=== PATIENT | male | born 1970 | race Caucasian/White ===

== ENCOUNTER 2025-01-15 14:59 | Outpatient (AMB) | payer OTHER, SELFPAY ==
--- NOTE | 2025-01-15 15:02 | A.PHYSOV_ITS ---
Vital Signs 01/15/25 15:03 Height 5 ft 8 in Weight 195 lb BMI 29.6 Intake Visit Reasons: MRI followup Intake Note: Patient is a 54 year old male here for MRI review. 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 The patient describes the sensation as an annoying numbness and itchiness rather than pain. Symptoms are exacerbated by standing or walking for long periods. A review of a recent MRI of the spine revealed mild degenerative disc disease and mild to moderate arthritis in the low back, with no obvious nerve impingement. The patient has not previously undergone physical therapy for this issue. The patient reports a past history of being an avid biker. Patient has failed conservative treatment therefore ordered MRI of his lumbar spine and we are reviewing it in person today. Pain Description - Location: The patient reports symptoms in the left thigh. - Quality: The patient describes the sensation as an annoying numbness and itchiness, not pain. - Exacerbating factors: Symptoms worsen with prolonged standing and walking. - Interference with function: The patient's ability to stand or walk for long periods is limited by the numbness. [facility] Surgical History H/O hernia repair History of cholecystectomy Social History (Updated 01/15/25 @ 15:05 by Marii Fernandez MA) Alcohol intake: current Alcohol intake frequency: holidays/special occasions only Patient Tobacco Use Status: Never used Tobacco Use of substances other than those prescribed or required for medical reasons: No Review of Systems Narrative Review of Systems - Neurological: Reports numbness and itchiness in the left thigh, worsened by prolonged standing or walking. Physical Exam Exam Exam: Physical Exam Lumbar Spine: Examination of his lumbar spine, there is no visible swelling or deformity. He is mildly tender to lower lumbar facets. He is otherwise nontender. Full range of motion of his lumbar spine. He does have an increase in pain with facet loading. Special Tests: Lhermittes sign was negative Heel Toe walk is normal Left straight leg raise: Negative Right straight leg raise: Negative Special tests Guido test is negative Ganslen's test is negative SI Joint compression test negative Corby test negative Piriformis stretch is negative Lower Extremities: Full range of motion bilateral lower extremities. No calf pain or edema. Neuro: Sensation: Intact to lower extremities bilaterally Strength L2 (Psoas): 5/5 on the left and 5/5 on the right. L3 (Quads): 5/5 on the left and 5/5 on the right. L4 (Ant tibialis): 5/5 on the left and 5/5 on the right. L5 (EHL) 5/5 on the left and 5/5 on the right. S1 (Gastroc): 5/5 on the left and 5/5 on the right. DTR L4: (Patellar) Left 2 Right 2 S1: (Achilles) Left 2 Right 2 Babinski Downgoing No pathologic clonus. No involuntary movement. Vital Signs: BMI result Body Mass Index 29.6 Assessment & Plan Assessment & Plan (1) Lumbar radiculopathy: Code(s): M54.16 - Radiculopathy, lumbar region Category: Medical (2) Lumbar spondylosis: Code(s): M47.816 - Spondylosis without myelopathy or radiculopathy, lumbar region Category: Medical Plan Pain Management - Affect: The patient describes the symptoms as annoying and reports they affect the quality of life. - Analgesia: The patient is not currently using any pain medications. - Activities of Daily Living: The patient is unable to stand or walk for long periods of time due to numbness. Plan Patient was informed and verbally consented to the use of an ambient scribe for clinic note documentation during this visit. 1. Lumbar Radiculopathy The patient's left thigh numbness is likely secondary to lumbar spine degenerative changes causing nerve irritation, as symptoms are suggestive despite an MRI showing no obvious nerve impingement. A conservative approach will be initiated, starting with a 4-6 week course of physical therapy. The patient was also advised on at-home core exercises and the benefits of low- impact exercise such as biking. If symptoms do not improve with physical therapy, a left L4 injection may be considered as the next step, though the patient expressed a preference to avoid injections. Follow-up is recommended after completion of the physical therapy course to re-evaluate symptoms. Orders: Orders PT Evaluation and Treatment Today M47.816 - Spondylosis without myelopathy or radiculopathy, lumbar region, M54.16 - Radiculopathy, lumbar region Coding Level of Care Code Tele Est Pt Level 3 (46609) Diagnoses Lumbar radiculopathy M54.16 Lumbar spondylosis M47.816
[2025-01-15 15:03] VITALS: BMI 29.6
--- OUTSIDE RECORDS SUMMARY | 2025-01-15 17:36 | XMS_ITS | Encounter Summary ---
Author Organization [facility] Address [address] [place] [address] Care Team Providers Care Print Shop Assistant Name Role Phone Johnny Aly MD Primary Care Provider [phone] Encounter Details Date Type Department Care Team (Late Contact Info) Description 01/09/2025 Results [facility] [address] [facility] [place] [phone] Hiwot William [place] Social History Tobacco Use Types Packs/Day Years Used Date Smoking Tobacco: Former Cigarettes 0 Q uit: 02/20/2006 Smokeless Tobacco: Never Alcohol Use Standard Drinks/Week Comments Yes 0 (1 standard drink = 0.6 oz pur e alcohol) Interpersonal Safety Answer Date Record ed Physical Abuse Unrecognized value 10/15/2024 Verbal Abuse Unrecognized value 10/15/2024 Sex and Gender Information Value Date Recorded Sex Assigned at Not on file Legal Sex Male 3:00 AM EST Gender Identity Not on file Sexual Orientation Not on file documented as of this encounter Plan of Treatment Upcoming Encounters Date Type Department Care Team (Late Contact Info) Description 03/10/2025 2:45 PM EST Office Visit Endocrinology - [place] [address] [place] [address] Cecile Moya PA [address], [place] 07/09/2025 3:30 PM EDT Office Visit Internal Medicine - [facility] [address] [place], [place] [phone] Johnny Aly MD [address] [place] [id number] documented as of this encounter Visit Diagnoses Not on filedocumented in this encounter Additional Health Concerns Assessment Noted Time PHQ-9 Depression Total Score: 0 01/10/20 10:48 AM EST documented as of this encounter Care Teams Print Shop Assistant Relationship Specialty Start Date End Date Johnny Aly MD [address] [place] [id number] PCP - General Internal Medicine 05/09/24 documented as of this encounter
--- OUTSIDE RECORDS SUMMARY | 2025-01-15 17:36 | XMS_ITS | Clinical Summary ---
Author Organization [place] [address] [facility] Building Address [address] [place], [place] [address], [place] Phone Care Team Providers Care Warehouse Representative Name Role Phone Johnny Aly MD Primary Care Provider [phone] Allergies No known active allergies Medications atorvastatin (LIPITOR) 10 mg tablet TAKE 1 TABLET BY MOUTH 1 TIME EACH DAY. 90 tablet 1 10/02/19 25 Active levothyroxine (SYNTHROID, LEVOTHROID) 50 mcg tablet TAKE 1 TABLET BY MOUTH EVERY DAY 90 tablet 1 10/02/19 25 Active dulaglutide (Trulicity) 0.75 mg/0.5 mL pen injector injection INJECT 0.5 MLS ONCE WEEKLY 2 mL 3 10/15/19 25 Active glipiZIDE (GLUCOTROL) 5 mg tablet TAKE 1 TABLET BY MOUTH 2 TIMES A DAY BEFORE MEALS. 180 tablet 1 10/15/19 25 Active omeprazole (PriLOSEC) [address] capsule TAKE 1 CAPSULE (40 MG TOTAL) BY MOUTH EVERY DAY BEFORE BREAKFAST . DO NOT CRUSH OR CHEW 90 capsule 3 10/24/19 25 Active metFORMIN (GLUCOPHAGE) 1,000 mg tablet TAKE 1 TABLET BY MOUTH TWICE A DAY WITH MEALS 180 tablet 1 01/16/20 25 Active lisinopriL (PRINIVIL,ZESTRI L) 2.5 mg tablet Take 1 tablet (2.5 mg total) by mouth 1 (one) time each day. 90 tablet 04/04/19 25 025 Discontinued(T herapy completed) omeprazole (PriLOSEC) [address] capsuleIndicatio ns:Type 2 diabetes mellitus without complications (CMS/HCC V24, CMS/HCC V28) TAKE 1 CAPSULE BY MOUTH EVERY DAY 90 capsule 1 08/15/19 025 Discontinued(F ormulary change) metFORMIN (GLUCOPHAGE) 1,000 mg tablet TAKE 1 TABLET BY MOUTH TWICE A DAY WITH MEALS 180 tablet 10/15/19 025 Discontinued Active Problems Problem Noted Date Diagnosed Date Class 1 obesity with serious comorbidity and body mass index (BMI) of 30.0 to 30.9 in adult 06/25/2024 Hypothyroidism 08/15/2023 Nephrolithiasis 09/03/2020 Schatzki's ring 10/30/2017 Type 2 diabetes mellitus ([facility] V24, [facility] V 28) 09/27/2016 Eosinophilic esophagitis 05/26/2015 Overview (02/16/2024): EGD plus biopsies 05/25/2015; also 09/29/2015 at [facility]. Reflux esophagitis 07/30/2010 BPH (benign prostatic hyperplasia) 12/23/2009 Seasonal allergies 12/23/2009 Left hip pain 11/11/2008 Inguinal hernia 02/16/2006 Mixed hyperlipidemia 02/16/2006 Encounters Date Type Department Care Team Description 01/09/2025 11:15 AM EST Lab Draw Station - [address] Type 2 diabetes mellitus with other specified complication, with long-term current use of insulin ([facility] V24, [facility] V28) (Primary Dx); Type 2 diabetes mellitus with other specified complication, without long-term current use of insulin ([facility] V24, [facility] V28) 01/09/2025 11:00 AM EST Office Visit Internal Medicine - [address] [phone] Johnny Aly MD Type 2 diabetes mellitus with other specified complication, with long-term current use of insulin ([facility] V24, [facility] V28) (Primary Dx); Mixed hyperlipidemia; Class 1 obesity due to excess calories with serious comorbidity and body mass index (BMI) of 30.0 to 30.9 in adult 01/09/2025 Results Follow-Up Internal Medicine - [address] [phone] [place] 12/24/2024 5:15 PM EST - 12/24/2024 11:59 PM EST Hospital Encounter Radiology Department - [address] [phone] Radiculopathy, lumbar region; Spondylosis, unspecified Discharge Disposition: Home or Self Care 12/16/2024 11:30 AM EDT Office Visit Walk-In Clinic - [address] [phone] Jann Humphrey PA Acute viral pharyngitis (Primary Dx) 10/15/2024 7:32 AM EDT Anesthesia Event [facility] [address] [place] [phone] Abrahan Hilton MD Johnson, Lorraine, CRNA 10/15/2024 6:35 AM EDT - 10/15/2024 11:59 PM EDT Hospital Encounter [facility] [address] [place] [phone] Bigg Byrd DO Johnson, Lorraine, CRNA Esophageal dysphagia; Schatzki ring of distal esophagus; Gastroesophageal reflux disease without esophagitis Discharge Disposition: Home or Self Care from Last 3 Months Immunizations Immunization Administration Dates Next Due Td Tetanus diptheria (Tdvax) 7yo and older 08/24 Tdap Tetanus diptheria acell ular pertussis (Boostrix; Adacel) 7yo and older 01/31/2020 Surgical History Surgery Date Site/Laterality Comments OTHER SURGICAL HISTORY PROCEDURE: AR UNLISTED PROCEDURE ANUS; COMMENT: anal fistula CHOLECYSTECTOMY 2006 PROCEDURE: HISTORICAL CHOLECYSTECTOMY; COMMENT: date approximate. HERNIA REPAIR PROCEDURE: HISTORICAL HERNIA REPAIR/ING OTHER SURGICAL HISTORY 07/25/2013 PROCEDURE: AR DILATION ESOPH UNGUIDED SOUND/BOUGIE 1/MULT PASS; COMMENT: 46 Fr Evelio UPPER GASTROINTESTINAL ENDOSCOPY 05/25/2015 PROCEDURE: AR UPPER GI ENDOSCOPY PERFORMED; COMMENT: Erosive esophagitis at the EGJ, biopsies of the midesophagus: Eosinophilic esophagitis UPPER GASTROINTESTINAL ENDOSCOPY 07/25/2013 PROCEDURE: AR UPPER GI ENDOSCOPY PERFORMED; COMMENT: LA grade A esophagitis and minor schatzki ring ESOPHAGOGASTRODUODENOSCOPY 09/29/2015 PROCEDURE: AR EGD TRANSORAL BIOPSY SINGLE/MULTIPLE; COMMENT: [facility] - esophagitis, gastritis, duodenitis. Pathology suggestive of possible celiac disease and EOE. No evidence of H. pylori or Barretts esophagus. OTHER SURGICAL HISTORY 12/13/2017 PROCEDURE: RADIOLOGIC EXAM ESOPHAGUS SINGLE CONTRAST STUDY; COMMENT: Mild esophageal dysmotility. No ulcer, stricture or filling defect. Reflux noted. COLONOSCOPY 08/13/2018 PROCEDURE: HISTORICAL COLONOSCOPY; COMMENT: negative screening exam Medical History Medical History Date Comments Other and unspecified hyperlipidemia 02/16/2006 DX:Other and unspecified hyperlipidemia Type II or unspecified type diabetes mellitus without mention of complication, not stated as uncontrolled 07/27/2006 DX:Type II or unspecified ty pe diabetes mellitus without mention of complication, not stated as uncontrolled Reflux esophagitis 07/30/2010 DX:Reflux eso phagitis Schatzki's ring Family History Relation Name Status Comments Brother 1 Alive DM Brother 2 Alive Daughter 1 Alive Daughter 2 Alive Daughter 3 Alive Father Alive CAD Mother Alive DM,CAD Sister 1 Alive Sister 2 Alive Son Alive Social History Tobacco Use Types Packs/Day Years [...] on file Sexual Orientation Not on file Obstetrics History Last Filed Vital Signs Vital Sign Reading Time Taken Comments Blood Pressure 128/80 01/09/2025 10:47 AM EST Pulse 78 01/09/2025 10:47 AM EST Temperature 36.6 C (97.9 F) 12/16/2024 11:34 AM EDT Respiratory Rate 16 10/15/2024 8:11 AM EDT Oxygen Saturation 98% 12/16/2024 11:34 AM EDT Inhaled Oxygen Concentration - - Weight 90.7 kg (200 lb) 01/09/2025 10:47 AM EST Height 172.7 cm (5' 8 ) 01/09/2025 10:47 AM EST Body Mass Index 30.41 01/09/2025 10:47 AM EST Plan of Treatment Upcoming Encounters Date Type Department Care Team (Late st Contact Info) Description 03/10/2025 2:45 PM EST Office Visit Endocrinology - [place] [address] [place] [address] Cecile Moya PA [address] [place], [place] 07/09/2025 3:30 PM EDT Office Visit Internal Medicine - [address] [phone] Johnny Aly MD [address] [place] [phone] Health Maintenance Due Date Last Done Comments Diabetes: Annual Foot Exam 1978 Diabetes: Annual Retina Eye Exam 1978 Hepatitis B Vaccines (1 of 3 - 19+ 3-dose series) 05/04/1987 Pneumococcal Vaccine: 50+ Years (1 of 2 - PCV) 05/04/1987 Zoster Vaccines (1 of 2) 2018 HIV Screening 01/29/2022 Hepatitis C Screening 01/29/2022 Social Influencers of Health Screening 01/29/2022 COVID-19 Vaccine ( season) 2024 04/17/2020, 03/27/2020 Influenza Vaccine (#1) 2024 Diabetes: Blood Sugar Control Test (HGBA1C) 07/09/2025 01/09/2025, 06/25/2024, 02/19/2024, Additional history exists Diabetes: Annual Urine Albumin-Creatinine Ratio (uACR) 01/09/2026 01/09/2025, 02/23/2024 Diabetes: Annual GFR (Glomerular Filtration Rate) 01/09/2026 01/09/2025, 06/27/2024, 02/19/2024, Additional history exists Colorectal Cancer Screening: Colonoscopy 08/13/2028 08/13/2018 Cholesterol Screening (Lipid Panel) 01/09/2030 01/09/2025, 06/27/2024, 02/19/2024, Additional history exists DTaP,Tdap,and Td Vaccines (3 - Td or Tdap) 01/30/2030 01/31/2020, 08/25/2011 RSV Immunization Adult Patients (1 - 1-dose 75+ series) 05/04/2043 Depression Screening Completed 01/09/2025 HIB Vaccines Aged Out No longer eligi ble based on patient's age to complete this topic HPV Vaccines Aged Out No longer eligi ble based on patient's age to complete this topic Hepatitis A Vaccines Aged Out No long er eligible based on patient's age to complete this topic IPV Vaccines Aged Out No longer eligi ble based on patient's age to complete this topic MMR Vaccines Aged Out No longer eligi ble based on patient's age to complete this topic Meningococcal ACWY Vaccine Aged Out N o longer eligible based on patient's age to complete this topic Meningococcal B Vaccine Aged Out No l onger eligible based on patient's age to complete this topic RSV Immunization Patients Under 20 months Aged Out No longer eligible based on patient's age to complete this topic Varicella Vaccines Aged Out No longer eligible based on patient's age to complete this topic Procedures Procedure Name Priority Date/Time Associated Diagnosis Comments MICROALBUMIN CREATININE URINE RATIO Routine 01/09/2025 11:19 AM EST Type 2 diabetes mellitus with other specified complication, with long-term current use of insulin ([facility] V24, [facility] V28) COMPREHENSIVE METABOLIC PANEL Routine 01/09/2025 11:13 AM EST Type 2 diabetes mellitus with other specified complication, with long-term current use of insulin ([facility] V24, [facility] V28) HEMOGLOBIN A1C Routine 01/09/2025 11:13 AM EST Type 2 diabetes mellitus with other specified complication, with long-term current use of insulin ([facility] V24, [facility] V28) LIPID PANEL WITH REFLEX TO DIRECT LDL Routine 01/09/2025 11:13 AM EST Type 2 diabetes mellitus with other specified complication, with long-term current use of insulin ([facility] V24, [facility] V28) MR LUMBAR SPINE WO CONTRAST Routine 12/24/2024 5:53 PM EST Radiculopathy, lumbar region Spondylosis, unspecified POC RAPID STREP A Routine 12/16/2024 12: 02 PM EDT Acute viral pharyngitis POC RAPID [id number], MOLECULAR Routine 12/16/2024 11:53 AM EDT Acute viral pharyngitis EGD Routine 10/15/2024 7:50 AM EDT Esophageal dysphagia Schatzki ring of distal esophagus Gastroesophageal reflux disease without esophagitis TISSUE EXAM Routine 10/15/2024 7:45 AM EDT Esophageal dysphagia Schatzki ring of distal esophagus Gastroesophageal reflux disease without esophagitis HM COLONOSCOPY Routine 08/13/2018 from Last 3 Months or Most Recently Relevant to Health Maintenance Results * Microalbumin creatinine urine ratio (01/09/2025 11:19 AM EST) Creatinine, Urine 222.0 mg/dL 01/09/2025 2:56 PM EST [facility] Microalb, Ur 16.0 0.0 - 29.0 mg/L 01/09/2025 2:56 PM EST [facility] Microalb/Creat Ratio 7 <30 mg/g creat 01/09/2025 2:56 PM EST [facility] Urine Urine specimen obtained by clean catch procedure / Unknown Non-blood Collection / Unknown 01/09/2025 11:19 AM EST 01/09/2025 11:19 AM EST us Johnny Aly MD LAB URINE ORDERABLES Final Res ult [facility] [address] [place] [address], [place] [phone] * Lipid panel with reflex to direct LDL (01/09/2025 11:13 AM EST) Cholesterol 155 0 - 200 mg/dL 01/09/2025 2:53 PM [facility] Triglycerides 116 0 - 150 mg/dL 01/09/2025 2:53 PM [facility] HDL 45 >=40 mg/dL 01/09/2025 2:53 PM [facility] LDL Calculated 87 0 - 100 mg/dL 01/09/2025 2:53 PM [facility] Comment:Estimated LDL Calcul ated using equation: Total cholesterol - HDL cholesterol - (Triglycerides/5) VLDL Cholesterol [place] 23.2 mg/dL 01/09/2025 2:53 PM [facility] Non HDL Chol. (LDL+VLDL) 110 <145 mg/dL 01/09/2025 2:53 PM [facility] Chol/HDL Ratio 3.4 0.0 - 4.4 01/09/2025 2:53 PM [facility] Blood Venous blood specimen / Unknown Venipuncture / Unknown 01/09/2025 11:13 AM EST 01/09/2025 11:13 AM EST us Johnny Aly MD LAB BLOOD ORDERABLES Final Res ult [facility] [address] [place] [address], * (ABNORMAL) Hemoglobin A1c (01/09/2025 11:13 AM EST) Hemoglobin A1C 7.5(H) <6.5 % LAB CHEMISTRY METHOD 01/09/2025 9:19 PM [facility] Mean Bld Glu Estim. 169 mg/dL LAB CHEMISTRY METHOD 01/09/2025 9:19 PM [facility] Blood Venous blood specimen / Unknown Venipuncture / Unknown 01/09/2025 11:13 AM EST 01/09/2025 11:13 AM EST us Johnny Aly MD LAB BLOOD ORDERABLES Final Res ult [facility] [address] [place] [address], * (ABNORMAL) Comprehensive metabolic panel (01/09/2025 11:13 AM EST) Sodium 143 133 - 145 mmol/L 01/09/2025 2:53 PM [facility] Potassium 4.7 3.5 - 5.5 mmol/L 01/09/2025 2:53 PM [facility] Chloride 106 96 - 110 mmol/L 01/09/2025 2:53 PM [facility] CO2 27 21 - 32 mmol/L 01/09/2025 2:53 PM [facility] Anion Gap 10 3 - 11 01/09/2025 2:53 PM [facility] Glucose 119(H) 70 - 100 mg/dL 01/09/2025 2:53 PM [facility] BUN 11 5 - 25 mg/dL 01/09/2025 2:53 PM [facility] Creatinine 0.85 0.70 - 1.30 mg/dL 01/09/2025 2:53 PM [facility] eGFR 102 >=60 mL/min/1. 73m2 01/09/2025 2:53 PM [facility] Comment:Calculation based on the Chronic Kidney Disease Epidemiology Collaboration (CKD-EPI) equation refit without adjustment for race. BUN/Creatinine Ratio 12.9 01/09/2025 2:53 PM [facility] Calcium 9.2 8.5 - 10.5 mg/dL 01/09/2025 2:53 PM EST [facility] AST (SGOT) 14 10 - 42 unit/L 01/09/2025 2:53 PM [facility] ALT (SGPT) 18 10 - 60 unit/L 01/09/2025 2:53 PM [facility] Alkaline Phosphatase 66 42 - 121 unit/L 01/09/2025 2:53 PM [facility] Total Protein 7.0 6.0 - 8.0 g/dL 01/09/2025 2:53 PM [facility] Albumin 4.4 3.2 - 5.0 g/dL 01/09/2025 2:53 PM [facility] Total Bilirubin 0.6 0.0 - 1.4 mg/dL 01/09/2025 2:53 PM [facility] Blood Venous blood specimen / Unknown Venipuncture / Unknown 01/09/2025 11:13 AM EST 01/09/2025 11:13 AM EST us Johnny Aly MD LAB BLOOD ORDERABLES Final Res ult [facility] [address] [place] [address], * MR Lumbar Spine wo Contrast (12/24/2024 5:53 PM EST) Anatomical Region Laterality Modality L-spine, Spine Magnetic Resonan ce 12/25/2024 5:04 PM EST Impressions 12/26/2024 11:30 AM EST Impression: Multilevel degenerative changes as above. -------- FINAL REPORT -------- Dictated By: Margarita Galdamez Dictated Date: 12/25/2024 17:04 ET Assigned Physician: Margarita Galdamez Reviewed and Electronically Signed By: Margarita Galdamez Signed Date: 12/26/2024 11:30 ET Workstation ID: [id number] Transcribed By: Self Edit Transcribed Date: 12/26/2024 08:53 ET Narrative 12/26/2024 11:30 AM EST MRI LUMBAR SPINE Clinical Statement: low back pain Comparison: None Technique: Multiplanar, multisequence MRI images of the lumbar spine were obtained without intravenous contrast. Findings: There is normal lumbar lordosis. There is preservation of vertebral body height. Vertebral body marrow is within normal limits. Disc desiccation at multiple levels. Cord signal is normal. The conus medullaris is normal in signal characteristics and morphology and terminates at the L1 level. T12-L1: Mild broad-based disc bulge without neuroforaminal or spinal canal stenosis L1-L2: Broad-based disc bulge, facet arthropathy and hypertrophy, ligamentum flavum hypertrophy with mild bilateral neuroforaminal stenosis, no spinal canal stenosis L2-L3: Broad-based disc bulge, facet arthropathy, ligamentum flavum hypertrophy with moderate left and mild right neuroforaminal stenosis, mild spinal canal stenosis L3-L4: Broad-based disc bulge, facet arthropathy and hypertrophy, ligamentum flavum hypertrophy with mild bilateral neuroforaminal stenosis and mild spinal canal stenosis L4-L5: Broad-based disc bulge, facet arthropathy and hypertrophy, ligamentum flavum hypertrophy, mild bilateral neuroforaminal stenosis and mild spinal canal stenosis L5-S1: Mild broad-based disc bulge, facet arthropathy without neuroforaminal or spinal canal stenosis Procedure Note Margarita Galdamez MD - 12/26/2024 MRI LUMBAR SPINE Clinical Statement: low back pain Comparison: None Technique: Multiplanar, multisequence MRI images of the lumbar spine wereobtained without intravenous contrast. Findings: There is normal lumbar lordosis. There is preservation ofvertebral body height. Vertebral body marrow is within normal limits.Disc desiccation at multiple levels. Cord signal is normal. The conusmedullaris is normal in signal characteristics and morphology andterminates at the L1 level. T12-L1: Mild broad-based disc bulge without neuroforaminal or spinal canalstenosis L1-L2: Broad-based disc bulge, facet arthropathy and hypertrophy,ligamentum flavum hypertrophy with mild bilateral neuroforaminal stenosis,no spinal canal stenosis L2-L3: Broad-based disc bulge, facet arthropathy, ligamentum flavumhypertrophy with moderate left and mild right neuroforaminal stenosis,mild spinal canal stenosis L3-L4: Broad-based disc bulge, facet arthropathy and hypertrophy,ligamentum flavum hypertrophy with mild bilateral neuroforaminal stenosisand mild spinal canal stenosis L4-L5: Broad-based disc bulge, facet arthropathy and hypertrophy,ligamentum flavum hypertrophy, mild bilateral neuroforaminal stenosis andmild spinal canal stenosis L5-S1: Mild broad-based disc bulge, facet arthropathy withoutneuroforaminal or spinal canal stenosis IMPRESSION: Impression: Multilevel degenerative changes as above. -------- FINAL REPORT -------- Dictated By: Margarita Galdamez Dictated Date: 12/25/2024 17:04 ET Assigned Physician: Margarita Galdamez Reviewed and Electronically Signed By: Margarita Galdamez Signed Date: 12/26/2024 11:30 ET Workstation ID: [id number] Transcribed By: Self Edit Transcribed Date: 12/26/2024 08:53 ET Valentin LANGLEY [facility] MRI PROCEDURES Final Resul t * POC rapid strep A manually resulted (12/16/2024 12:02 PM EDT) Pathologist [facility] Rapid Strep A Screen POC Negative Negative Swab Structure of anterior region of neck / Unknown 12/16/2024 12:02 PM EDT Jann LANGLEY POINT OF CARE TEST ENTER/E DIT ORDERABLES Final Result * Poc Rapid [id number], MOLECULAR (12/16/2024 11:53 AM EDT) Pathologist [facility] COVID-19/SARS- COV-2 Rapid POC Negative Negative Swab Nasopharyngeal structure / Unknown 12/16/2024 11:53 AM EDT Jann LANGLEY POINT OF CARE TEST ENTER/E DIT ORDERABLES Final Result * EGD Anesthesia - MAC; [facility] ENDOSCOPY (10/15/2024 7:50 AM EDT) Anatomical Region Laterality Modality Endoscopy 10/15/2024 7:32 AM EDT Impressions 10/15/2024 7:51 AM EDT - Z-line irregular, 35 cm from the incisors. Biopsied. WATS-3D brush biopsy specimens obtained. - Normal stomach. - Normal examined duodenum. - Benign-appearing esophageal stenosis. Dilated. Recommendation: - Discharge patient to home. - Resume previous diet. - Continue present medications. - Await pathology results. Narrative 10/15/2024 7:51 AM EDT [facility] Patient Name: Loi Ocampo Procedure Date: 10/15/2024 7:32 AM Date of : 1970 Age: 54 Gender: Male Note Status: Finalized Attending MD: Bigg Byrd DO, [id number] Procedure Date No Time: 10/15/2024 Procedure: Upper GI endoscopy Indications: Functional Dyspepsia, Heartburn Providers: Bigg Byrd DO Referring MD: Johnny Aly MD Medicines: Monitored Anesthesia Care Complications: No immediate complications. Estimated blood loss: Minimal. Estimated Blood Loss: Estimated blood loss was minimal. Procedure: Pre-Anesthesia Assessment: - - Prior to the procedure, a History and Physical was performed, and patient medications and allergies were reviewed. The patient is competent. The risks and benefits of the procedure and the sedation options and risks were discussed with the patient. All questions were answered and informed consent was obtained. Patient identification and proposed procedure were verified by the physician, the nurse, the anesthesiologist, the stretcher helper and the signals collection technician in the pre-procedure area in the endoscopy suite. Mental Status Examination: alert and oriented. Airway Examination: normal oropharyngeal airway and neck mobility. Respiratory Examination: clear to auscultation. CV Examination: normal. Prophylactic Antibiotics: The patient does not require prophylactic antibiotics. Prior Anticoagulants: The patient has taken no anticoagulant or antiplatelet agents. ASA Grade Assessment: II - A patient with mild systemic disease. After reviewing the risks and benefits, the patient was deemed in satisfactory condition to undergo the procedure. The anesthesia plan was to use monitored anesthesia care (MAC). Immediately prior to administration of medications, the patient was re-assessed for adequacy to receive sedatives. The heart rate, respiratory rate, oxygen saturations, blood pressure, adequacy of pulmonary ventilation, and response to care were monitored throughout the procedure. The physical status of the patient was re-assessed after the procedure. After obtaining informed consent, the endoscope was passed under direct vision. Throughout the procedure, the patient's blood pressure, pulse, and oxygen saturations were monitored continuously. The Endoscope was introduced through the mouth, and advanced to the third part of duodenum. The upper GI endoscopy was accomplished without difficulty. The patient tolerated the procedure well. Findings: The Z-line was irregular and was found 35 cm from the incisors. Biopsies were taken with a cold forceps for histology. Wide Area Transepithelial Sampling (WATS-3D [place] Biopsy) was performed for histology and samples sent for Computer-Assisted 3-Dimensional analysis. Estimated blood loss was minimal. The stomach was normal. The examined duodenum was normal. One benign-appearing, intrinsic mild (non-circumferential scarring) stenosis was found 34 to 35 cm from the incisors. This stenosis measured 1.8 cm (inner diameter) x less than one cm (in length). The stenosis was traversed. A TTS dilator was passed through the scope. Dilation with an 18-19-20 mm balloon dilator was performed to 20 mm. The dilation site was examined following endoscope reinsertion and showed complete resolution of luminal narrowing. Estimated blood loss was minimal. Procedure Code(s): --- Professional --- 88866, Esophagogastroduodenoscopy, flexible, transoral; with transendoscopic balloon dilation of esophagus (less than 30 mm diameter) 99996, 59, Esophagogastroduodenoscopy, flexible, transoral; with biopsy, single or multiple Diagnosis Code(s): --- Professional --- K22.89, Other specified disease of esophagus K22.2, Esophageal obstruction K30, Functional dyspepsia R12, Heartburn CPT copyright 2020 [employer]. All rights reserved. The codes documented in this report are preliminary and upon fill manager review may be revised to meet current compliance requirements. BIGG Byrd DO 10/15/2024 7:50:34 AM This report has been signed electronically.Bigg Byrd DO Number of Addenda: 0 Note Initiated On: 10/15/2024 7:32 AM Scope In: Scope Out: Endoscopy Department at [facility] - [address] [place] [phone] Procedure Note Bigg Byrd DO - 10/15/2024 [facility] Patient Name: Loi Ocampo Procedure Date: 10/15/2024 7:32 AM Date of : 1970 Age: 54 Gender: Male Note Status: Finalized Attending MD: Bigg Byrd DO, [id number] Procedure Date No Time: 10/15/2024 Procedure: Upper GI endoscopy Indications: Functional Dyspepsia, Heartburn Providers: Bigg Byrd DO Referring MD: Johnny Aly MD Medicines: Monitored Anesthesia Care Complications: No immediate complications. Estimated blood loss: Minimal. Estimated Blood Loss: Estimated blood loss was minimal. Procedure: Pre-Anesthesia Assessment: - - Prior to the procedure, a History and Physicalwas performed, and patient medications and allergieswere reviewed. The patient is competent. The risks and benefits of the procedure and the sedation optionsand risks were discussed with the patient. Allquestions were answered and informed consent was obtained. Patient identification and proposed procedure were verified by the physician, the nurse, the anesthesiologist, the stretcher helper and thetechnician in the pre-procedure area in the endoscopy suite. Mental Status Examination: alert and oriented.Airway Examination: normal oropharyngeal airway and neck mobility. Respiratory Examination: clear to auscultation. CV Examination: normal. Prophylactic Antibiotics: The patient does not requireprophylactic antibiotics. Prior Anticoagulants: The patient has taken no anticoagulant or antiplatelet agents. ASA Grade Assessment: II - A patient with mild systemic disease. After reviewing the risks and benefits,the patient was deemed in satisfactory condition to undergo the procedure. The anesthesia plan was touse monitored anesthesia care (MAC). Immediately priorto administration of medications, the patient was re-assessed for adequacy to receive sedatives. The heart rate, respiratory rate, oxygen saturations, blood pressure, adequacy of pulmonary ventilation,and response to care were monitored throughout the procedure. The physical status of the patient was re-assessed after the procedure. After obtaining informed consent, the endoscope was passed under direct vision. Throughout theprocedure, the patient's blood pressure, pulse, and oxygen saturations were monitored continuously. TheEndoscope was introduced through the mouth, and advanced tothe third part of duodenum. The upper GI endoscopy was accomplished without difficulty. The patienttolerated the procedure well. Findings: The Z-line was irregular and was found 35 cm fromthe incisors. Biopsies were taken with a cold forcepsfor histology. Wide Area Transepithelial Sampling(WATS-3D [place] Biopsy) was performed for histology andsamples sent for Computer-Assisted 3-Dimensional analysis. Estimated blood loss was minimal. The stomach was normal. The examined duodenum was normal. One benign-appearing, intrinsic mild (non-circumferential scarring) stenosis was found34 to 35 cm from the incisors. This stenosis measured1.8 cm (inner diameter) x less than one cm (in length). The stenosis was traversed. A TTS dilator waspassed through the scope. Dilation with an 18-19-20 mm balloon dilator was performed to 20 mm. Thedilation site was examined following endoscope reinsertionand showed complete resolution of luminal narrowing. Estimated blood loss was minimal. Procedure Code(s): --- Professional --- 99441, Esophagogastroduodenoscopy, flexible, transoral; with transendoscopic balloon dilation of esophagus (less than 30 mm diameter) 97769, 59, Esophagogastroduodenoscopy, flexible, transoral; with biopsy, single or multiple Diagnosis Code(s): --- Professional --- K22.89, Other specified disease of esophagus K22.2, Esophageal obstruction K30, Functional dyspepsia R12, Heartburn CPT copyright 2020 [employer]. All rights reserved. The codes documented in this report are preliminary and upon fill manager reviewmay be revised to meet current compliance requirements. BIGG Byrd DO 10/15/2024 7:50:34 AM This report has been signed electronically.Bigg Byrd DO Number of Addenda: 0 Note Initiated On: 10/15/2024 7:32 AM Scope In: Scope Out: Endoscopy Department at [facility] - [address] [place] [id number] IMPRESSION: - Z-line irregular, 35 cm from the incisors. Biopsied. WATS-3D brush biopsy specimens obtained. - Normal stomach. - Normal examined duodenum. - Benign-appearing esophageal stenosis. Dilated. Recommendation: - Discharge patient to home. - Resume previous diet. - Continue present medications. - Await pathology results. Bigg Byrd DO GI~PROCEDURE ORDERABLES Final Re sult * Tissue exam (10/15/2024 7:45 AM EDT) Final Diagnosis Gastroesophageal junction, biopsy: - Gastric cardiac/fundic type mucosa with chronic focally active inflammation and reactive epithelial changes. - No squamous mucosa identified.. - No intestinal metaplasia and no dysplasia identified. 10/16/2024 9:12 AM EDT [facility] Gross Description A. Esophagus, ge junction biopsies: Labeled ge juncti esophagus . Received in formalin are two soft to rubbery, asher-pink to red, tissue fragments, approximately measuring 0.25 cm and 0.5 cm in greatest diameters, which are wrapped in paper and submitted in toto in one cassette, two pieces, multiple levels. Please note: Small tissue fragments may not survive processing. hs/DG 10/16/2024 9:12 AM EDT [facility] Disclaimer Unless otherwise specified, all tissue is 10% NB formalin fixed and paraffin embedded. 10/16/2024 9:12 AM EDT [facility] Tissue Esophageal structure / Unknown 10/15/2024 7:45 AM EDT 10/15/2024 9:46 AM EDT Bigg Byrd DO LAB PATHOLOGY ORDERABLES Final R esult [facility] [address] [place] [address], * Colonoscopy (08/13/2018) Colonoscopy COMPLETED Anatomical Region Laterality Modality Other Historical Provider HEALTH MAINTENANCE Final Result from Last 3 Months or Most Recently Relevant to Health Maintenance Insurance [facility] Care Teams Warehouse Representative Relationship Specialty Start Date End Date Johnny Aly MD [address] [place] [id number] PCP - General Internal Medicine 05/09/24
== END 2025-01-15 15:20 | disposition home or self-care (01) ==
LOC: HO.HPHYS 15:00
PROVIDERS: PCP Internal Medicine; Visit Provider Physician Assistant
DX: M54.16 Radiculopathy, lumbar region (principal); M47.816 Spondylosis without myelopathy or radiculopathy, lumbar region
CPT/HCPCS: 99213